=== PATIENT | male | born 1975 | race Caucasian/White ===

== ENCOUNTER 2024-07-16 12:15 | Emergency (ER) | payer OTHER ==
[~2024-07-16] VITALS: Ht 172.7 cm; Wt 86.4 kg
[2024-07-16 12:24] VITALS: TEMP 98.3
[2024-07-16] MEDS ORDERED: CEPH-558 PO (12:40)
[2024-07-16] MEDS ORDERED: SULF-261 PO (12:40)
[2024-07-16 12:50] VITALS: BP 123/77; PULSE 86; RESP 16; O2SAT 99
== END 2024-07-16 12:51 | disposition home or self-care (01) ==
LOC: EMS 12:15
DX: L02.415 Cutaneous abscess of right lower limb (principal); I10 Essential (primary) hypertension; Z98.890 Other specified postprocedural states; Z90.49 Acquired absence of other specified parts of digestive tract
CPT/HCPCS: 99283; Z7502